=== PATIENT | male | born 1940 | race Caucasian/White ===

== ENCOUNTER 2019-05-04 17:25 | Emergency (ER) | payer MEDICARE ==
[~2019-05-04] VITALS: Ht 177.8 cm; Wt 90.7 kg
[2019-05-04 17:25] VITALS: BP_SYST 119
--- NOTE | 2019-05-04 17:25 | NUR ---
Placed in room 02 . Placed on weaving instructor, blood pressure machine and pulse oximeter. To gown for exam. Side rails up. Report given to Richard CLARK.
--- NOTE | 2019-05-04 17:41 | NUR ---
ER Dr. Nichols at bedside examining patient.
[2019-05-04] MEDS ORDERED: IPRATROPIUM/ALBUTEROL SULFATE 3 ML AMPUL.NEB (DUONEB) INH ONE (17:45)
--- NOTE | 2019-05-04 18:00 | NUR ---
Pt came for LLQ and difficulty breathing. O2 sat currently WNL on 4L nasal cannula, pain reported but tolerable, family at bedside
--- NOTE | 2019-05-04 18:06 | NUR ---
20 gauge angiocath placed to R AC. Use of asceptic technique. Opsite placed over site. Blood return noted. Blood for lab drawn from site. Flushed with 10 cc of normal saline. No evidence of infiltration noted. Patient tolerated well.
--- NOTE | 2019-05-04 18:15 | NUR ---
pt received breathing treatment, improving breathing and comfort
[2019-05-04 18:25] LABS: BASOPHILS # (AUTO) 0.1 K/uL (0.0-0.2); BASOPHILS % (AUTO) 0.5 % (0.0-2.0); EOSINOPHILS # (AUTO) 0.3 K/uL (0.0-0.4); EOSINOPHILS % (AUTO) 2.1 % (0.0-4.0); HEMATOCRIT 44.1 % (36-54); HEMOGLOBIN 14.9 g/dL (14.0-18.0); LYMPHOCYTES # (AUTO) 2.9 K/uL (1.0-5.5); MEAN CORPUSCULAR HEMOGLOBIN 31 pg (27-31); MEAN CORPUSCULAR HGB CONC 34 % (32-36); MEAN CORPUSCULAR VOLUME 90 fL (79.0-98.0); MONOCYTES # (AUTO) 1.1 K/uL (0.0-1.0); NEUTROPHILS # (AUTO) 8.2 K/uL (1.8-7.7); NEUTROPHILS % (AUTO) 65.4 % (40.0-70.0); PLATELET COUNT (AUTO) 344 K/uL (130-430); RED BLOOD CELL COUNT(AUTO) 4.89 MIL/uL (4.2-6.2); RED CELL DISTRIBUTION WIDTH 13.9 % (9.0-15.0); WHITE BLOOD COUNT (AUTO) 12.6 K/uL (4.8-10.8)
[2019-05-04 18:33] LABS: ANION GAP 6 (5-15); CHLORIDE 101 mmol/L (98-107); CREATININE 1.23 mg/dL (0.55-1.30); GLUCOSE 92 mg/dL (70-99); SODIUM SERUM 140 mmol/L (136-145); UREA NITROGEN, BLOOD 23 mg/dL (8-21)
[2019-05-04 18:34] LABS: INR 1.1 (0.80-1.20); PROTHROMBIN TIME 11.4 SECS (9.5-12.5)
[2019-05-04 18:38] LABS: ALANINE AMINOTRANSFERASE 36 U/L (12-78); ALBUMIN 3.5 g/dL (3.4-4.8); ASPARTATE AMINOTRANSFERASE 29 U/L (10-37); TOTAL BILIRUBIN 0.6 mg/dL (0.0-1.0)
[2019-05-04 18:47] LABS: POTASSIUM 2.6 mmol/L (3.5-5.1)
[2019-05-04] MEDS ORDERED: OSELTAMIVIR PHOSPHATE 6 MG/1 ML, 60 ML SUSP PO ONE (19:00)
[2019-05-04] MEDS ORDERED: KCL 20 mEq in NS 1000 mL 1,000 ML IV ONE (19:00)
[2019-05-04] MEDS ORDERED: cefTRIAXone 1 GM IVPB PREMIX 50 ML IV ONE (19:00)
--- NOTE | 2019-05-04 19:15 | NUR ---
care endorsed to David CLARK. Pt is in stable condition. Rocephin IVPB infused order.
--- NOTE | 2019-05-04 19:20 | NUR ---
ASSUMED CARE. RECEIVED ALERT,ORIENTED. AFEBRILE, NOT IN ACUTE DISTRESS. NO PAIN OR DISCOMFORT NOTED. SAO2=98% ON 4 LPM O2 VIA NC. MEDICATIONS GIVEN BY AM SHIFT RN. VS STABLE, WILL CONTINUE TO MONITOR.
--- NOTE | 2019-05-04 20:00 | NUR ---
Marly ZEE given by RN @ 2473, completed @ 1999
--- NOTE | 2019-05-04 20:55 | NUR ---
PT. FOR TRANSFER TO [facility] Claribel ACCEPTING MD IS . AMBULANCE ETA IS 2145. PT. REMAINS STABLE AND PAIN FREE.
--- NOTE | 2019-05-04 21:05 | NUR ---
PT.AND FAMILY MADE AWARE OF TRANSFER. TRANSFER ACKNOWLEGEMENT SIGNED BY DAUGHTER.
--- NOTE | 2019-05-04 21:10 | NUR ---
REPORT GIVEN TO [facility].
--- NOTE | 2019-05-04 21:30 | NUR ---
IVF KCL 20 meq in NS started infusion @ 1913 by RN, finished @ 2129
--- NOTE | 2019-05-04 21:40 | NUR ---
[facility] HERE TO OVERCOIL STEPPER PT. REPORT GIVEN TO SILVER CLARK.
--- NOTE | 2019-05-04 21:54 | NUR ---
FINGERSTICK BLOOD SUGAR CHECK=69. ER-MD MADE AWARE. 1 AMP.D50 IVP GIVEN ORDERED.
[2019-05-04] MEDS ORDERED: DEXTROSE 50% JECT 50 ML DISP.SYRIN IVP ONE (22:00)
--- NOTE | 2019-05-04 22:00 | NUR ---
Dextrose given IVP @ 2153 ended 2154
--- NOTE | 2019-05-04 22:10 | NUR ---
LEFT UNIT VIA AMBULANCE [facility].
[2019-05-04 22:19] VITALS: BP_SYST 149
== END 2019-05-04 22:10 | disposition short-term general hospital (02) ==
LOC: SED 17:25
DX: K56.609 Unspecified intestinal obstruction, unspecified as to partial versus complete obstruction (principal); E11.9 Type 2 diabetes mellitus without complications; E87.6 Hypokalemia; I49.3 Ventricular premature depolarization; Z86.79 Personal history of other diseases of the circulatory system
CPT/HCPCS: 36415; 36600; 71045; 74018; 80053; 82803; 82962; 83605; 84484; 85025; 85610; 85730; 86710; 87040; 93005; 94640; 96365; 96366; 96368; 96375; 99291; G9035; J0696; J7620; 99285; J3480